=== PATIENT | male | born 1965 ===

== ENCOUNTER 2017-05-01 09:30 | Emergency (ER) | payer SELFPAY ==
[2017-05-01 10:03] VITALS: BP 131/79; PULSE 77; RESP 16; TEMP 98.5; O2SAT 98
[2017-05-01] MEDS ORDERED: Erythromycin 0.5% Ophth Oint 1 APPLIC/3.5 G OD ONE (11:45)
--- NOTE | 2017-05-01 12:29 | ED PDOC ---
HPI: Eye Injury/Pain Time Seen by Provider: 05/01/17 10:15 Chief Complaint (Nursing): Eye Problem Chief Complaint (Provider): Eye injury History Per: Patient History/Exam Limitations: no limitations Onset/Duration Of Symptoms: Days (2) Additional Complaint(s): Patient is a 52 y/o male presenting to the emergency department for right eye pain ongoing for two days after sustaining a possible injury to his eye at work. 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 Denies wearing glasses or contacts lenses, visual loss, or other complaints. PCP: none provided. Past Medical History Reviewed: Historical Data, Nursing Documentation, Vital Signs Vital Signs: Last Vital Signs Temp 98.5 F 05/01/17 10:00 Pulse 77 05/01/17 10:00 Resp 16 05/01/17 10:00 BP 131/79 05/01/17 10:00 Pulse Ox 98 05/01/17 10:00 - Medical History PMH: No Chronic Diseases - Surgical History Surgical History: No Surg Hx - Family History Family History: States: No Known Family Hx - Social History Ex-Smoker (has not smoked in the last 12 months): No Alcohol: None Drugs: Denies - Home Medications Home Medications: Ambulatory Orders Medication Instructions Recorded Erythromycin 0.5% [Ilytocin] 3.5 gm OD BID #1 tube 05/01/17 - Allergies Allergies/Adverse Reactions: Allergies Allergy/AdvReac Type Severity Reaction Status Date / Time No Known Allergies Allergy Verified 05/01/17 10:00 Review of Systems ROS Statement: Except As Marked, All Systems Reviewed And Found Negative Eyes: Positive for: Pain. Negative for: Vision Change Physical Exam - Reviewed Nursing Documentation Reviewed: Yes Vital Signs Reviewed: Yes - Physical Exam Appears: Positive for: Well, Non-toxic, No Acute Distress Head Exam: Positive for: ATRAUMATIC Skin: Positive for: Normal Color, Warm, Dry Eye Exam: Positive for: Conjunctival injection (oculus bob), Other (small foreign body noted by pupil of right eye. Mild fluorescein uptake around foreign body.). Negative for: Normal appearance Neck: Positive for: Normal, Painless ROM, Supple Cardiovascular/Chest: Positive for: Regular Rate, Rhythm. Negative for: Murmur Respiratory: Positive for: Normal Breath Sounds. Negative for: Accessory Muscle Use, Respiratory Distress Extremity: Positive for: Normal ROM Neurologic/Psych: Positive for: Alert, Oriented (x3) - ECG O2 Sat by Pulse Oximetry: 98 (RA) Pulse Ox Interpretation: Normal - Progress ED Course And Treament: d/w Dr Christina. f/u arranged for tomorrow 9 am for removal of foreign body. Medical Decision Making Medical Decision Making: Time: 11:45 Initial Impression: Right eye pain Initial plan: Erythromycin 1 application Adacel 0.5 ml IM Reevaluation 12:00 Foreign body removed from eye. Patient reports improvement in pain. 12:15 Upon provider reevaluation patient is feeling better, is medically stable, and requires no further treatment in the ED at this time. Patient will be discharged with Rx for Erythromycin. Counseling was provided and all questions were answered regarding diagnosis and need for follow up with Dr. Alfa Mauro. There is agreement to discharge plan. Return if symptoms persist or worsen. Clinical Impression: Foreign body in right eye Scribe Attestation: Documented by Trini Franco, acting as a scribe for SHIAR Rodney. Provider Scribe Attestation: All medical record entries made by the Scribe were at my direction and personally dictated by me. I have reviewed the chart and agree that the record accurately reflects my personal performance of the history, physical exam, medical decision making, and the department course for this patient. I have also personally directed, reviewed, and agree with the discharge instructions and disposition. Disposition - Clinical Impression Clinical Impression: Foreign body in eye - Patient ED Disposition Is Patient to be Admitted: No Doctor Will See Patient In The: Office Counseled Patient/Family Regarding: Need For Followup - Disposition Referrals: Alfa Mauro MD [Staff Provider] - Disposition: Routine/Home Disposition Time: 12:15 Condition: FAIR Additional Instructions: VISITA LA OF[facility] DE DR MONICA PEREZ A LA 9AM Prescriptions: Erythromycin 0.5% [Ilytocin] 3.5 gm OD BID #1 tube Instructions: Eye Foreign Body (ED) Forms: [employer] (Swedish) Print Language: FIJIAN
[2017-05-01] MEDS ORDERED: Oxycodone/Acetaminophen 5/325 mg Tab PO STA (13:11)
[2017-05-01] MEDS ORDERED: Naproxen 500 MG TAB PO STA (13:12)
== END 2017-05-01 13:30 | disposition home or self-care (01) ==
LOC: H.ER 09:30
DX: T15.81XA Foreign body in other and multiple parts of external eye, right eye, initial encounter (principal)

== ENCOUNTER 2017-09-21 10:25 | Emergency (ER) | payer OTHER ==
[2017-09-21 10:34] VITALS: BP 153/88; PULSE 102; RESP 20; TEMP 98.3; O2SAT 96
--- NOTE | 2017-09-21 11:25 | ED PDOC ---
Lower Extremity Pain/Injury Time Seen by Provider: 09/21/17 11:12 Chief Complaint (Provider): Foot Pain Bilaterally History Per: Patient History/Exam Limitations: no limitations Onset/Duration Of Symptoms: Days (several months) Current Symptoms Are (Timing): Still Present Additional Complaint(s): Jefferson is a 52 y/o male who presents to the ED c/o bilateral foot pain ongoing for several months. Patient denies injury or trauma to the feet and states pain is worse on the left lateral and right arch preventing walking with comfort and working. He denies redness, skin irritation, fever, or swelling. PMD: None Past Medical History Reviewed: Historical Data (past medical history limited as patient has not been to a dr in many years), Nursing Documentation, Vital Signs Vital Signs: Last Vital Signs Temp 98.3 F 09/21/17 10:33 Pulse 102 H 09/21/17 10:33 Resp 20 09/21/17 10:33 BP 153/88 H 09/21/17 10:33 Pulse Ox 96 09/21/17 10:33 - Surgical History Other surgeries: hand surgery - Family History Family History: States: Unknown Family Hx - Home Medications Home Medications: Ambulatory Orders Medication Instructions Recorded Erythromycin 0.5% [Ilytocin] 3.5 gm OD BID #1 tube 05/01/17 Ibuprofen [Motrin Tab] 600 mg PO Q6 PRN #15 tab 09/21/17 - Allergies Allergies/Adverse Reactions: Allergies Allergy/AdvReac Type Severity Reaction Status Date / Time No Known Allergies Allergy Verified 05/01/17 10:00 Review of Systems ROS Statement: Except As Marked, All Systems Reviewed And Found Negative Musculoskeletal: Positive for: Foot Pain (b/l) Neurological: Positive for: Headache Physical Exam - Reviewed Nursing Documentation Reviewed: Yes Vital Signs Reviewed: Yes - Physical Exam Appears: Positive for: Well, Non-toxic, No Acute Distress Head Exam: Positive for: ATRAUMATIC, NORMAL INSPECTION, NORMOCEPHALIC Skin: Positive for: Normal Color, Warm, Dry Eye Exam: Positive for: Normal appearance ENT: Positive for: Normal ENT Inspection Neck: Positive for: Normal, Painless ROM Cardiovascular/Chest: Positive for: Regular Rate, Rhythm. Negative for: Tachycardia Respiratory: Positive for: Normal Breath Sounds. Negative for: Respiratory Distress Pulses-Dorsalis Pedis (L): 2+ Pulses-Dorsalis Pedis (R): 2+ Extremity: Positive for: Normal ROM (warm, pink), Tenderness (left lateral foot along 5th metatarsal). Negative for: Pedal Edema, Deformity, Swelling Neurologic/Psych: Positive for: Alert, Oriented. Negative for: Motor/Sensory Deficits - ECG O2 Sat by Pulse Oximetry: 96 (RA) Pulse Ox Interpretation: Normal Medical Decision Making Medical Decision Making: Time: 11:19 Initial Impression: Foot Pain Initial Plan: --Accucheck --XR Foot b/l --Podiatry Consult ------ Scribe~Attestation: Documented by Bubba Meza, acting as a scribe for Bradley Patel III, MD. Provider Scribe~Attestation: All medical record entries made by the Scribe were at my direction and personally dictated by me. I have reviewed the chart and agree that the record accurately reflects my personal performance of the history, physical exam, medical decision making, and the department course for this patient. I have also personally directed, reviewed, and agree with the discharge instructions and disposition. Disposition - Clinical Impression Clinical Impression: Foot pain - Patient ED Disposition Is Patient to be Admitted: No Counseled Patient/Family Regarding: Studies Performed, Diagnosis, Need For Followup, Rx Given - Disposition Referrals: [facility] [Outside] Podiatry Clinic [Outside] Disposition: Routine/Home Disposition Time: 13:10 Condition: STABLE Additional Instructions: See clinic for any worse or new symptoms/ Prescriptions: Ibuprofen [Motrin Tab] 600 mg PO Q6 PRN #15 tab PRN Reason: Pain, Moderate (4-7) Instructions: Arthralgia (ED) Forms: [employer] (Polish)
--- NOTE | 2017-09-21 13:09 | RAD ---
PROCEDURE: Bilateral Feet Radiographs. HISTORY: b/l foot pain x3mos COMPARISON: None. FINDINGS: BONES: Right Foot: No fracture Left Foot: No fracture JOINTS: Right Foot: 1st metatarsal-phalangeal joint arthrosis moderate with hallux valgus orientation Left Foot: 1st metatarsal-phalangeal joint arthrosis -mild SOFT TISSUES: Right Foot: Normal. Left Foot: Normal. OTHER FINDINGS: Right os peroneum -developmental variant IMPRESSION: No fracture or lytic lesion. 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 Concomitant right hallux valgus orientation.
== END 2017-09-21 13:58 | disposition home or self-care (01) ==
LOC: H.ER 10:25
DX: M79.672 Pain in left foot (principal); M79.671 Pain in right foot

== ENCOUNTER 2018-05-16 10:47 | Emergency (ER) | payer OTHER ==
--- NOTE | 2018-05-16 14:06 | ED PDOC ---
HPI: Back Time Seen by Provider: 05/16/18 11:21 Chief Complaint (Nursing): Back Pain Chief Complaint (Provider): Low back pain x 1 week History Per: Patient History/Exam Limitations: no limitations Onset/Duration Of Symptoms: Days Current Symptoms Are (Timing): Still Present Quality Of Discomfort: Dull Additional Complaint(s): 53 yo male with no medical problems presents for evaluation of low back pain. Pt denies trauma. No numbness/tingling. No bladder or bowel incontinence. No similar in the past. No midline pain. Pt states he did not take anything for pain today. Past Medical History Reviewed: Historical Data, Nursing Documentation, Vital Signs Vital Signs: Last Vital Signs Temp 97 F L 05/16/18 11:13 Pulse 78 05/16/18 11:13 Resp 19 05/16/18 11:13 BP Pulse Ox 98 05/16/18 11:13 - Medical History PMH: No Chronic Diseases - Surgical History Surgical History: No Surg Hx - Family History Family History: States: Unknown Family Hx - Living Arrangements Living Arrangements: With Family - Social History Current smoker - smoking cessation education provided: No - Home Medications Home Medications: Ambulatory Orders Medication Instructions Recorded Erythromycin 0.5% [Ilytocin] 3.5 gm OD BID #1 tube 05/01/17 Ibuprofen [Motrin Tab] 600 mg PO Q6 PRN #15 tab 09/21/17 Cyclobenzaprine [Cyclobenzaprine 10 mg PO Q8H #20 tab 05/16/18 HCl] Naproxen [Naprosyn] 500 mg PO BID PRN #20 tablet 05/16/18 - Allergies Allergies/Adverse Reactions: Allergies Allergy/AdvReac Type Severity Reaction Status Date / Time No Known Allergies Allergy Verified 05/01/17 10:00 Review of Systems ROS Statement: Except As Marked, All Systems Reviewed And Found Negative Constitutional: Negative for: Fever, Chills Gastrointestinal: Negative for: Nausea, Vomiting, Abdominal Pain Musculoskeletal: Positive for: Back Pain Neurological: Negative for: Weakness Physical Exam - Reviewed Nursing Documentation Reviewed: Yes Vital Signs Reviewed: Yes - Physical Exam Appears: Positive for: Well, Non-toxic, No Acute Distress Head Exam: Positive for: ATRAUMATIC, NORMAL INSPECTION, NORMOCEPHALIC Skin: Positive for: Normal Color, Warm, DRY Eye Exam: Positive for: Normal appearance ENT: Positive for: Normal ENT Inspection Neck: Positive for: Normal, Painless ROM Cardiovascular/Chest: Positive for: Regular Rate, Rhythm Respiratory: Positive for: CNT, Normal Breath Sounds Back: Positive for: Normal Inspection. Negative for: Vertebral Tenderness Extremity: Positive for: Normal ROM Neurologic/Psych: Positive for: Alert, Oriented - ECG O2 Sat by Pulse Oximetry: 98 Medical Decision Making Medical Decision Making: Pt reports feeling better on re-evaluation. Disposition - Clinical Impression Clinical Impression: Low back pain - Patient ED Disposition Is Patient to be Admitted: No Counseled Patient/Family Regarding: Diagnosis, Need For Followup, Rx Given - Disposition Referrals: [facility] [Outside] Podiatry Clinic [Outside] Disposition: Routine/Home Disposition Time: 13:59 Condition: STABLE Prescriptions: Cyclobenzaprine [Cyclobenzaprine HCl] 10 mg PO Q8H #20 tab Naproxen [Naprosyn] 500 mg PO BID PRN #20 tablet PRN Reason: Pain Instructions: Low Back Pain in Adults
[2018-05-16 14:34] VITALS: BP 132/86; PULSE 76; RESP 16; TEMP 98.2; O2SAT 100
== END 2018-05-16 14:34 | disposition home or self-care (01) ==
LOC: H.ER 10:47
DX: M54.5 Low back pain (principal)
CPT/HCPCS: 96372; 99282; J1885